=== PATIENT | female | born 1960 | race Caucasian/White ===

== ENCOUNTER 2018-05-02 15:56 | Emergency (ER) | payer MEDICAID ==
[~2018-05-02] VITALS: Ht 162.6 cm; Wt 68.0 kg
[2018-05-02 23:15] VITALS: BP 128/70
[2018-05-02] MEDS ORDERED: KETOROLAC 30MG/ML VIAL IM ONE (23:15)
== END 2018-05-03 00:43 | disposition home or self-care (01) ==
LOC: ER 16:03
DX: M54.5 Low back pain (principal); E11.9 Type 2 diabetes mellitus without complications; I10 Essential (primary) hypertension
CPT/HCPCS: 72100; 96372; 99283; J1885